=== PATIENT | male | born 1960 | race Caucasian/White ===

== ENCOUNTER 2023-07-30 14:27 | Inpatient (IN) | payer BC, SELFPAY ==
[2023-07-30 12:06] VITALS: BP 120/70
[2023-07-30 12:18] VITALS: BMI 29.0
--- NOTE | 2023-07-30 12:52 | ED.GENMED ---
History of Present Illness
<CORINA Doherty - Last Filed: 07/30/23 13:52>
General
Chief Complaint: Musculo-Skeletal Complaint
Source: patient
Exam Limitations: none
Time Seen by Provider: 07/30/23 12:16
Nursing documentation reviewed up to this point in time: agreed with
Travel History
Have you had any contact with someone who has COVID-19?: No
Do you have any symptoms of coronavirus? Fever > 100 degrees, chills, cough, shortness of breath, sore throat, loss of taste or smell, muscle aches, or headache?: No
History of Present Illness
History of Present Illness:
Patient is a 62-year-old male with past medical history of bone marrow transplant that presents to the ER complaining of right knee pain and swelling since Tuesday. He believes he may have hit his right knee on something Tuesday but swelling pain
and redness started Tuesday. He has had a lot of discomfort in the knee and went to urgent care was sent to the ER for possible septic knee. He denies any fever chills nausea vomiting. He had negative x-rays at urgent care
Past History
<CORINA Doherty - Last Filed: 07/30/23 13:52>
Past History
ED Past Medical History: Hypercholesterolemia and Other (Patient has a history of ALL)
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
Social History
Tobacco: Former smoker
Alcohol: Occasional (8 )
Drug: None (I )
Personal:
Living: with family
Employment: Employed
Family History
Family History: Hypertension; Negative Early CAD
Review of Systems
<CORINA Doherty - Last Filed: 07/30/23 13:52>
Review of Systems
Allergies reviewed?: Yes
All Other Systems: ROS reviewed and negative except as documented in HPI and ROS
Constitutional: Reports no symptoms; Denies fever, fatigue or chills
Respiratory: Reports no symptoms
Cardiac: Reports no symptoms
Musculoskeletal: Reports other (swelling/redness /pain to right knee )
Skin: Reports other (redness to right knee /anterior lower leg )
Neurological: Reports no symptoms
Psychiatric: Reports no symptoms
Phy Exam
<CORINA Doherty - Last Filed: 07/30/23 13:52>
General Physical Exam
General Presentation: no apparent distress
General age: appears stated age
General Skin: warm and dry
General Habitus: normal
General Mental: alert
General Hydration: appears well hydrated
Neurological Exam
Neurological Exam: alert and oriented x3
Musculoskeletal Exam
Musculoskeletal Exam: other (rle with strong pulses + erythema/warmth to right anterior knee, lower leg + obvious swelling over bursa pt able to flex/extend knee with discomfort )
Skin Exam
Skin Exam: normal color and warm/dry
Course
<CORINA Doherty - Last Filed: 07/30/23 13:52>
Orders/Labs/Results
Orders:
Orders
07/30/23 12:34
IV Insert/Care/Rem.- Treatment PRN
07/30/23 12:41
Complete Blood Count/With Diff Urgent
Comprehensive Metabolic Panel Urgent
Erythrocyte Sed Rate Urgent
Comment: ADD ON
Lactic Acid Q4H
Comment: CANCEL 2nd LACTIC ACID IF 1st LACTIC ACID IS LESS THAN 2
Blood Culture Q30M
TAMI Source: Blood/Venous
Specimen Description:
Blood Culture Q30M
TAMI Source: Blood/Venous
Specimen Description:
07/30/23 13:13
Add On- LAB Urgent
Tests Added?: sed rate/cbc
07/30/23 13:38
Vancomycin 1 Gram/200 ml [Vancocin] 1 gram in 200 ml IV NOW
Abnormal Lab Results
07/30/23
12:41
WBC 14.1 H 10^3/uL
(4.8-10.8)
RBC 4.51 L 10^6/uL
(4.70-6.10)
MPV 10.6 H fL
(7.4-10.4)
Absolute Neuts (auto) 10.7 H 10^3/uL
(1.4-6.5)
Absolute Monos (auto) 1.8 H 10^3/uL
(0.1-0.6)
Neutrophils % 76.2 H %
(42.2-75.2)
Lymphocytes % 10.6 L %
(20.5-51.1)
Monocytes % 12.6 H %
(1.7-9.3)
BUN 36 H mg/dl
(9-20)
Creatinine 2.4 H mg/dL
(0.7-1.3)
07/30/23 12:41
07/30/23 12:41
Vital Signs
Initial and Last Documented VS:
Initial Vital Signs
Temp Pulse Resp BP Pulse Ox
97.7 F 109 16 120/70 98
07/30/23 12:06 07/30/23 12:06 07/30/23 12:06 07/30/23 12:06 07/30/23 12:06
Last Documented Vital Signs
Temp Pulse Resp BP Pulse Ox
97.7 F 109 16 120/70 98
07/30/23 12:06 07/30/23 12:06 07/30/23 12:06 07/30/23 12:06 07/30/23 12:06
Truck Loader consulted with Physician
Truck Loader consulted with physician?: Yes
Name of Physician Consulted: rafael
<Nabil White, DO - Last Filed: 07/30/23 13:34>
Orders/Labs/Results
Orders:
Orders
07/30/23 12:34
IV Insert/Care/Rem.- Treatment PRN
07/30/23 12:41
Complete Blood Count/With Diff Urgent
Comprehensive Metabolic Panel Urgent
Erythrocyte Sed Rate Urgent
Comment: ADD ON
Lactic Acid Q4H
Comment: CANCEL 2nd LACTIC ACID IF 1st LACTIC ACID IS LESS THAN 2
Blood Culture Q30M
TAMI Source: Blood/Venous
Specimen Description:
Blood Culture Q30M
TAMI Source: Blood/Venous
Specimen Description:
07/30/23 13:13
Add On- LAB Urgent
Tests Added?: sed rate/cbc
07/30/23 13:38
Vancomycin 1 Gram/200 ml [Vancocin] 1 gram in 200 ml IV NOW
Abnormal Lab Results
07/30/23
12:41
WBC 14.1 H 10^3/uL
(4.8-10.8)
RBC 4.51 L 10^6/uL
(4.70-6.10)
MPV 10.6 H fL
(7.4-10.4)
Absolute Neuts (auto) 10.7 H 10^3/uL
(1.4-6.5)
Absolute Monos (auto) 1.8 H 10^3/uL
(0.1-0.6)
Neutrophils % 76.2 H %
(42.2-75.2)
Lymphocytes % 10.6 L %
(20.5-51.1)
Monocytes % 12.6 H %
(1.7-9.3)
BUN 36 H mg/dl
(9-20)
Creatinine 2.4 H mg/dL
(0.7-1.3)
07/30/23 12:41
07/30/23 12:41
Vital Signs
Initial and Last Documented VS:
Initial Vital Signs
Temp Pulse Resp BP Pulse Ox
97.7 F 109 16 120/70 98
07/30/23 12:06 07/30/23 12:06 07/30/23 12:06 07/30/23 12:06 07/30/23 12:06
Last Documented Vital Signs
Temp Pulse Resp BP Pulse Ox
97.7 F 109 16 120/70 98
07/30/23 12:06 07/30/23 12:06 07/30/23 12:06 07/30/23 12:06 07/30/23 12:06
<CORINA Doherty - Last Filed: 07/30/23 13:52>
MDM/Problems Addressed
Differential Diagnosis Includes:
not limited to:
MDM/Problems Addressed:
Symptoms are consistent with infected bursa. Patient nontoxic-appearing afebrile white count minimally elevated. Patient does have surrounding erythema to proximal knee distal thigh and lower leg. Patient eval by Dr White will adm /iv antibx.
Chronic conditions affecting care:
hx of bone marrow transplant
<CORINA Doherty - Last Filed: 07/30/23 13:52>
*Pulse Oximetry
Patient hypoxic: no
*Critical Care Note
Total Time (30-74mins, 75-104mins- exclusive of procedures): Not Applicable
ED Attending Note
<CORINA Doherty - Last Filed: 07/30/23 13:52>
-
Portions of this chart may have been created with voice recognition software.� Occasional wrong word or��sound alike� substitutions may have occurred due to the inherent limitations of voice recognition software.
<Nabil White DO - Last Filed: 07/30/23 13:34>
ED Attending Note
Patient seen and examined by attending physician: Yes
I performed the substantive portion of visit, reviewed & personally made and approve the management plan that is documented in note by myself or SEAN.: Yes
ED Attending Note:
62-year-old male with history of bone marrow transplant who presents with red and swollen right lower extremity. Patient states he thinks he bumped his knee and did not think much of it. Today he noticed a swollen red it was. Sent from urgent
care to rule out septic arthritis. Patient is able to bend the knee but does have pain due to the swelling and redness. No fevers. Exam: Clearly tender prepatellar bursa on the right with surrounding redness that extends across anterior knee
proximal to the thigh and distal almost to the ankle. Significant warmth throughout. Swelling throughout the right lower extremity. Does not have a significant joint effusion suspected but is somewhat difficult as his skin is swollen. Assessment
and plan: More fever infected bursa with surrounding cellulitis and I do septic joint. IV antibiotics and admit
Discharge Plan
Departure
Patient Disposition: Admit
Date of Disposition: 07/30/23
Time of Disposition: 13:51
Admit to: Med/Surg
Admit to doctor: kirt
Presentation/result/management discussed w/ accepting MD/DO: Hospitalist
Patient with high blood pressure during this ER visit?: No
Condition: Fair
Covid-19: Not Applicable
Discharge Problem:
infected right knee bursa, cellulitis right leg
Prescriptions:
No Action
atorvastatin 10 MG tablet
10 mg PO QPM
cephalexin 500 MG capsule
500 mg PO QID Qty: 20 0RF
Referrals:
Mary Daniels MD [Family Provider] -
Interventions
Interventions:
*Risk Screen - Suicide Last Done: 07/30/23 12:18
*General Assessment Last Done: 07/30/23 12:18
*Neglect/Abuse Screening Last Done: 07/30/23 12:18
ED- Fall Risk Assessment Last Done: 07/30/23 12:18
*ED COVID-19 Vaccine History Last Done: 07/30/23 12:06
ED-Musculoskeletal Assessment Last Done: 07/30/23 12:18
[2023-07-30 12:59] LABS: % Basophils 0.2 % (0-2); % Eosinophils 0.1 % (0-6); % Immature Granulocytes 0.3 % (0-0.5); % Lymphocytes 10.6 % (20.5-51.1); % Monocytes 12.6 % (1.7-9.3); % Neutrophils 76.2 % (42.2-75.2); Absolute Lymphocytes 1.5 10^3/uL (1.2-3.4); Absolute Monocytes 1.8 10^3/uL (0.1-0.6); Absolute Neutrophils 10.7 10^3/uL (1.4-6.5); Hemoglobin 13.9 g/dL (13.0-18.0); Mean Corp Hgb Conc. 33.9 g/dL (33.0-37.0); Mean Corpuscular Hgb 30.8 pg (27.0-31.0); Mean Corpuscular Volume 90.9 fL (80.0-94.0); Mean Platelet Volume 10.6 fL (7.4-10.4); Nucleated Red Blood Cells % 0 % (-); Platelet Count 197 10^3/uL (130-400); Red Blood Cell Count 4.51 10^6/uL (4.70-6.10); Red Cell Dist. Width 13.4 % (11.5-14.5); White Blood Cell Count 14.1 10^3/uL (4.8-10.8)
[2023-07-30 13:06] LABS: Lactic Acid 0.9 mmol/L (0.7-2.0)
[2023-07-30 13:07] LABS: ALT (SGPT) 42 U/L (0-50); AST (SGOT) 45 U/L (17-59); Albumin 4.3 g/dl (3.5-5.0); Alkaline Phosphatase 60 U/L (38-126); Blood Urea Nitrogen 36 mg/dl (9-20); Calcium 9.7 mg/dl (8.4-10.2); Carbon Dioxide 25 mmol/L (22-30); Chloride 103 mmol/L (98-107); Estimated Creatinine Clearance 33 ml/min; Glucose 95 mg/dl (70-99); Potassium 4.6 mmol/L (3.5-5.1); Sodium 135 mmol/L (135-145); Total Protein 7.4 g/dl (6.3-8.2); eGFR 29.95
[2023-07-30] MEDS: VANCOCIN 200 IV ×2 (13:48→15:58)
--- NOTE | 2023-07-30 13:50 | HPS.HSE ---
Addendum entered and electronically signed by Daenne Roman MD 07/30/23 14:46:
I saw and examined the patient.
The CROP ADJUSTER's note was reviewed and I agree with the note.
Comment:
Mr. Deuce Navarrete is a 62 yo man with hx ALL s/p bone marrow transplant, HLD presents to the ER with right knee pain and swelling since Tuesday. Seen at urgent care with negative x-rays.
Triage VS: T 97.7, P 109, RR 16, BP 120/70, SpO2 98%
LABS: WBC 14.1, Hg 13.9, PLT 197, Na 135, K+ 4.6, CO2 25, BUN 36, Cr 2.4, lactate 0.9, liver enzymes WNL
On exam patient is with erythema right knee extending down to ankle. He has minimal flexion right knee 2/2 pain. He is not tender lateral aspects but tender anteriorly along bursa.
MAR: IV Vancomycin
Patient will be admitted to medicine with Ortho consulting; concern for septic bursitis. IV Vanc given in ER, add on IV Cefazolin. Unknown baseline creatinine although patient states it is chronically elevated. Will give IVF overnight and
monitor. Monitor WBC, fever curve. continue home medications.
Original Note:
Family Physician
-
Family Physician: Mary Daniels
Chief Complaint
-
right LE redness and swelling
History of Present Illness
62-year-old male with past medical history of bone marrow transplant that presents to the ER complaining of right knee pain and swelling since Tuesday.� He believes he may have hit his right knee on table on Tuesday but swelling pain and redness
started Tuesday.�stated progressively worsening swelling,redness and pain. He has had a lot of discomfort in the knee and went to urgent care was sent to the ER for possible septic knee.� He denies any fever chills nausea vomiting.� denied ROSALES,
dizzy or syncopal episode. denied chest pain, sob. denied abdominal pain, n,v,d. denied dysuria or hematuria.
Patient received Vanco in the ER. Admitting for further management
Medical History
Past Medical History
Past Medical History: Reports Other
Additional Past Medical History:
Hello
Hyperlipidemia
Bone marrow transplant
Past Surgical History: Reports None
Social History
Tobacco: Former Smoker
Alcohol: Former
Drug: None
Living: With Family
Family History
Family History: Not pertinent
Allergies / Home Medications
Allergies reflects when Allergies were last updated in [facility].
Home Medications with original date entered in [facility]
Allergy/Medication List:
Allergies
Allergy/AdvReac Type Severity Reaction Status Date / Time
No Known Allergies Allergy Verified 07/30/23 12:08
Home Medications
amlodipine 5 mg tablet (Norvasc) 5 mg PO DAILY 07/30/23
aspirin 325 mg tablet 325 mg PO BIDPRN PRN MILD PAIN 07/30/23
fenofibrate 160 mg tablet 160 mg PO DAILY 07/30/23
rosuvastatin 10 mg tablet (Crestor) 10 mg PO QPM 07/30/23
Review of Systems
-
Constitutional: Reports No Symptoms
EENT: Reports No Symptoms
Respiratory: Reports No Symptoms
Cardiac: Reports No Symptoms
Abdomen/GI: Reports No Symptoms
: Reports No Symptoms
Musculoskeletal: Reports Other (right knee pain, redness, swelling)
Skin: Reports No Symptoms
Neurological: Reports No Symptoms
Endocrine: Reports No Symptoms
Hematologic/Lymphatic: Reports No Symptoms
Psych: Reports No Symptoms
Physical Exam
Vital Signs
Vital Signs
Temp Pulse Resp BP Pulse Ox
97.7 F 109 16 120/70 98
07/30/23 12:06 07/30/23 12:06 07/30/23 12:06 07/30/23 12:06 07/30/23 12:06
Physical Exam
General: Well Developed, Well Nourished and No Apparent Distress
HEENT: NormoCephalic, Moist mucous membranes and Atraumatic
Respiratory: Clear
Cardiac: S1/S2 and Regular Rhythm; No Murmur or Rub
GI: Soft, Non Tender, Non Distended and Normal Bowel Sounds; No Organomegaly
Rectal: Deferred by Provider
Musculoskeletal: No Clubbing, No Cyanosis and Other (right knee pain, redness swelling)
Skin: No Rash
Neuro: AO x 3 and Nonfocal/grossly intact
Psych: Calm
Laboratory Results
-
07/30/23 12:41
07/30/23 12:41
Laboratory Results
Lactic Acid Cancelled 07/30/23 16:45
Total Bilirubin 1.0 mg/dl (0.2-1.3) 07/30/23 12:41
AST 45 U/L (17-59) 07/30/23 12:41
ALT 42 U/L (0-50) 07/30/23 12:41
Alkaline Phosphatase 60 U/L (38-126) 07/30/23 12:41
Data Reviewed
-
Lab Data: Labs Reviewed by me
Impression/Plan
-
# Redness to right leg and knee likely bursa with cellulitis
-WBCs 14.1
-IV vancomycin
-iv cefazolin
-Tylenol as needed for fever
-Blood culture sent from ER
-orthopedics consulted
# Acute kidney injury likely on 6 chronic kidney disease stage IIIb likely dehydration
-Creatinine 2.4
-normal saline continued
-monitor BMP in am
# History of ALL
-Status post bone marrow transplant
# Essential hypertension
-Blood pressure stable in ER
-Norvasc continued
# Hyperlipidemia
-Fenofibrate and Crestor continued
# DVT prophylaxis
-Heparin subcu
# CODE STATUS
-Full code
[2023-07-30 14:25] LABS: Erythrocyte Sed Rate 23 mm/hour (0-20)
--- NOTE | 2023-07-30 15:03 | CON.ORTHO ---
Consultation - Orthopedics
History
Deuce presents with progressive knee pain and swelling since Tuesday. Now difficult to walk. Went to urgent care this am, x-ray negative and referred to ED. Denies fevers or chills. Does have PMH of gout, and ALL with bone marrow transplant.
Allergies / Home Medications
Allergy/AdvReac Type Severity Reaction Status Date / Time
No Known Allergies Allergy Verified 07/30/23 12:08
Medication Instructions Recorded
amlodipine 5 mg tablet (Norvasc) 5 mg PO DAILY 07/30/23
aspirin 325 mg tablet 325 mg PO BIDPRN PRN MILD PAIN 07/30/23
fenofibrate 160 mg tablet 160 mg PO DAILY 07/30/23
rosuvastatin 10 mg tablet (Crestor) 10 mg PO QPM 07/30/23
Vital Signs / Lab Results
Temp Pulse Resp BP Pulse Ox
97.7 F 109 16 120/70 98
07/30/23 12:06 07/30/23 12:06 07/30/23 12:06 07/30/23 12:06 07/30/23 12:06
07/30/23 12:41
07/30/23 12:41
Right knee has erythema anteriorly That extends down the anterior leg, very tender to palpation. 1+ joint effusion. Painful ROM. Ambulates with antalgic gait.
Assessment / Plan
Right knee effusion with cellulitis.
Using sterile technique, the knee was aspirated of 7ml cloudy synovial fluid.
Send fluid for cell count, crystals, cultures.
Gout is likely, but need to evaluate for possible infection.
Admit to hospitalist for IV abx.
Will follow.
--- NOTE | 2023-07-30 15:31 | PHA.VAN.IN ---
Assessment
- Assessment
Renal Function: Appears elevated from baseline
- Previous Dosing Experience
Previous Regimen: 1000MG Q48H
Date of Regimen: 04/2010
Patient's SCR is: Decreased compared to previous dosing experience (2.4(NOW) VS 3.4 (04/2010))
Patient's weight is: Elevated compared to previous dosing experience (90.3KG (NOW) VS 66.2KG (04/2010))
Plan
- Plan
Initial / Loading Dose: 2000MG
Maintenance Regimen: PRN BY LEVEL
Monitoring: RANDOM LEVEL 07/31 IN AM
Pharmacokinetics Vancomycin I
- -
Patient Age: 62
Patient Sex: Male
Vancomycin Day #: 1
Indication: Skin And Soft Tissue
Requesting Provider: EARNEST REYES
Pertinent Antimicrobial Allergies:
NKDA
Height / Weight:
Height 5 ft 9.5 in
Actual Weight 90.3 kg
IBW in k.9
- Vital Signs / Lab Results
Temp Pulse Resp BP Pulse Ox
97.7 F 109 16 120/70 98
07/30/23 12:06 07/30/23 12:06 07/30/23 12:06 07/30/23 12:06 07/30/23 12:06
Lab Results - Hematology
07/30/23
12:41
WBC 14.1 H
Lab Results - Chemistry
07/30/23
12:41
BUN 36 H
Creatinine 2.4 H
Estimated Creat Clear 33
Albumin 4.3
07/30/23 07/30/23
12:41 16:45
Lactic Acid 0.9 Cancelled
[2023-07-30 15:57] VITALS: BP 143/82; BMI 28.5
[2023-07-30] MEDS: ANCEF 10 IV (15:58)
[2023-07-30] MEDS: NSS 1000 IV (15:58)
[2023-07-30 16:06] LABS: Body Fluid WBC 12920 /CUMM
[2023-07-30 16:07] LABS: Body Fluid Mononuclear 13.2 %; Body Fluid Polymorphonuclear 86.8 %
[2023-07-30 16:17] LABS: Body Fluid Second Tech DW
[2023-07-30] MEDS: CRESTOR 10 MG PO (17:17)
[2023-07-30] MEDS: HEPARIN 5000 UNITS SC (19:45)
[2023-07-30] MEDS: TYLENOL 650 MG PO (19:45)
[2023-07-30] MEDS: DELTASONE 40 MG PO (19:45)
[2023-07-30 23:50] VITALS: BP 98/63
[2023-07-31] MEDS: NSS 1000 IV (03:59)
[2023-07-31] MEDS: ANCEF 10 IV ×2 (04:06→15:39)
[2023-07-31 07:33] LABS: Hematocrit 41.3 % (39.0-52.0); Hemoglobin 13.8 g/dL (13.0-18.0); Mean Corp Hgb Conc. 33.4 g/dL (33.0-37.0); Mean Corpuscular Hgb 30.1 pg (27.0-31.0); Mean Corpuscular Volume 90.2 fL (80.0-94.0); Mean Platelet Volume 10.4 fL (7.4-10.4); Platelet Count 223 10^3/uL (130-400); Red Blood Cell Count 4.58 10^6/uL (4.70-6.10); Red Cell Dist. Width 13.2 % (11.5-14.5); White Blood Cell Count 11.5 10^3/uL (4.8-10.8)
[2023-07-31 07:47] LABS: Vancomycin Random 13.8 ug/ml
[2023-07-31 07:51] VITALS: BP 121/81
--- NOTE | 2023-07-31 07:55 | W.PN.UPDATE ---
Update Note
Progress Note Update
62M with concern for right knee cellulitis/septic arthropathy s/p aspiration
[place] [address], positive for monosodium urate crystals/gouty arthropathy. Infection low likelihood with cell count.
-recommend specific treatment for gouty arthropathy per primary vs rheumatology if needed
-Orthopedic surgery will sign off at this time; recommend outpatient f/u with PCP or rheumatology.
[2023-07-31 07:57] LABS: Blood Urea Nitrogen 37 mg/dl (9-20); Calcium 9.5 mg/dl (8.4-10.2); Carbon Dioxide 23 mmol/L (22-30); Chloride 107 mmol/L (98-107); Estimated Creatinine Clearance 39 ml/min; Glucose 123 mg/dl (70-99); Potassium 4.2 mmol/L (3.5-5.1); Sodium 138 mmol/L (135-145); eGFR 37.27
[2023-07-31] MEDS: HEPARIN 5000 UNITS SC ×2 (08:26→20:04)
[2023-07-31] MEDS: TRICOR 145 MG PO (08:26)
--- NOTE | 2023-07-31 08:36 | PHA.VAN.FU ---
Vancomycin Assessment / Plan
- Assessment
Renal Function: SCR Decreasing (2.4-->2.0)
WBC's are: Trending Down
In the past 24 hrs, patient has been: Afebrile
Concomitant Antimicrobials: ANCEF
- Assessment - Therapeutic Drug Monitoring
Random Level: 13.8
- Dosing Plan
Dosing by Level: Re-dose today (1250MG)
- Monitoring Plan
Random Level: 08/01 IN AM
- Follow Up
Pharmacy will continue to follow.
Vancomycin Follow UP
- -
Patient Age: 62
Patient Sex: Male
Vancomycin Day #: 2
Indication: Skin And Soft Tissue
Requesting Provider: EARNEST REYES
Pertinent Antimicrobial Allergies:
NKDA
Height / Weight:
Height 5 ft 9 in
Actual Weight 87.6 kg
IBW in k.9
- Vital Signs / Lab Results
Temp Pulse Resp BP Pulse Ox
97.7 F 97 18 121/81 95
07/31/23 07:51 07/31/23 07:51 07/31/23 07:51 07/31/23 07:51 07/31/23 07:51
Lab Results - Hematology
07/30/23 07/31/23
12:41 06:59
WBC 14.1 H 11.5 H
Lab Results - Chemistry
07/30/23 07/31/23
12:41 06:59
BUN 36 H 37 H
Creatinine 2.4 H 2.0 H
Estimated Creat Clear 33 39
Albumin 4.3
07/30/23 07/30/23
12:41 16:45
Lactic Acid 0.9 Cancelled
Microbiology Results
07/30/23 15:05 Gram Stain - Preliminary
Joint Fluid
Therapeutic Drug Monitoring
Random Vancomycin 13.8 ug/ml 07/31/23 06:59
[2023-07-31] MEDS: NORVASC PO (09:23)
[2023-07-31] MEDS: VANCOCIN 275 MG IV (09:23)
--- NOTE | 2023-07-31 10:37 | W.PN.HOSP.TC ---
Today's Communication/Plan
-
IV Cefazolin, stop vanc
oral prednisone
Assessment / Plan
Assessment / Plan
Mr. Deuce Navarrete is a 62 yo man with hx ALL s/p bone marrow transplant, HLD presents to the ER with right knee pain and swelling since Tuesday.� Seen at urgent care with negative x-rays. Admitted to medicine with ortho consulting s/p aspiration
showing monosodium urate crystals.
Gout
possible superimposed cellulitis
-s/p ortho guided tap on 07/30 with fluid showing monosodium urate crystals; gram stain without growth
-continue prednisone 40mg PO QD (given CKD)
-given erythema extended to mckeon; will continue IV antibiotics IV Cefazolin; stop Vancomycin
-F/U final culture
-PT/OT
-pain control
HLD
-POLISHER AND SANDER fenofibrate, crestor
HTN
-POLISHER AND SANDER amlodipine
acute on chronic kidney disease stage III
-creatinine now likely at baseline
-patient eating and drinking well, stop further fluids
Hx ALL s/p bone marrow transplant
DVT PPx
FULL CODE �
Anticipated Discharge: 24 - 48 hours
Subjective/Interval History
-
Date of Service: July 31, 2023
right mckeon less erythematous; right knee with persistent swelling
Objective Data
-
Labs:
Laboratory Results
07/31/23
06:59
WBC 11.5 H
Hgb 13.8
Hct 41.3
Plt Count 223
Sodium 138
Potassium 4.2
Chloride 107
Carbon Dioxide 23
BUN 37 H
Creatinine 2.0 H
Glucose 123 H
Calcium 9.5
Vital Signs:
Vital Signs
Temp Pulse Resp BP Pulse Ox
97.7 F 97 18 121/81 95
07/31/23 07:51 07/31/23 07:51 07/31/23 07:51 07/31/23 07:51 07/31/23 07:51
I&O
07/30/23 07/31/23 08/01/23
06:59 06:59 06:59
Intake Total 1440 / 1440
Output Total 1200 / 1200
Balance 240 / 240
Review of Systems
-
History Source: Patient
All other systems: Reviewed and negative
Physical Exam
-
General: No Apparent Distress
HEENT: PERRLA
Respiratory: Clear to Auscultation; Negative Wheezes
Cardiac: Regular Rhythm and S1/S2
GI: Soft and Nontender
Musculoskeletal: Other (right knee with persistent swelling; erythema along mckeon improved )
Skin: Warm and Dry; Negative Rash
Neuro: AO x 3
Psych: Calm
Data Reviewed
-
Diagnostic Radiology: Report Reviewed by me
Labs: Labs Reviewed by me
[2023-07-31] MEDS: DELTASONE 40 MG PO (11:26)
--- NOTE | 2023-07-31 15:01 | CM ---
Alert awake oriented patient who lives alone in a 2 story home with 2 step to enter and 13 steps to bed and bathroom. He is independent in driving and in all activities of daily living.He was offered VN he declined need.He uses a cane.
[facility] hx / No SNF history
Pharmacy [facility]
PCP DR DIAZ
PLAN Home Declined VN
[2023-07-31 15:32] VITALS: BP 116/79
[2023-07-31] MEDS: CRESTOR 10 MG PO (17:40)
[2023-07-31 23:20] VITALS: BP 96/64
[2023-08-01] MEDS: ANCEF 10 IV (03:34)
[2023-08-01 07:05] VITALS: BP 128/82
--- NOTE | 2023-08-01 08:05 | W.PN.HOSP.TC ---
Today's Communication/Plan
-
Discharge today
Assessment / Plan
Assessment / Plan
Physical Exam
General: No Apparent Distress
HEENT: Normocephalic
Respiratory: Clear to Auscultation
Cardiac: Regular Rhythm and S1/S2
GI: Soft and Nontender. Positive bowel sounds.
Musculoskeletal: Other (right knee with improved swelling; erythema along mckeon improved )
Skin: Warm and Dry
Neuro: AAO x 3
Psych: Calm

Assessment/Plan
Mr. Deuce Navarrete is a 62 yo man with hx ALL s/p bone marrow transplant, HLD presented to the ER with right knee pain and swelling for the prior 3 to 4 days.� Seen at urgent care with negative x-rays. Admitted to medicine with ortho consulting s/p
aspiration showing monosodium urate crystals.
Gout
Possible superimposed cellulitis
-s/p ortho guided tap on 07/30 with fluid showing monosodium urate crystals; gram stain without growth
-continue prednisone 40mg PO QD (given CKD) for another 3 days (last day is August 04, 2023) followed by prednisone taper 30 mg x3 days, followed by 20 mg x3 days, followed by 10 mg x 3 days
-given erythema extended to mckeon; will continue PO antibiotics with Cephalexin 500 mg QID x 4 more days. Status post IV antibiotics with IV Cefazolin; Status post Vancomycin
-F/U final culture
-PT/OT
-pain control
Hyperlipidemia
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
Hypertension
-SENIOR LINUX SYSTEMS ADMINISTRATOR amlodipine
Acute on chronic kidney disease stage III
-creatinine now likely at baseline
-patient eating and drinking well, stop further fluids
Hx ALL s/p bone marrow transplant
DVT PPx
FULL CODE �
More than 30 minutes spent in discharge including
Final examination of the patient
Summarizing hospital stay
Instructions for continuing care to all relevant caregivers
Preparation of discharge records, prescriptions, and referral forms
Total time spent (in minutes): 39
Anticipated Discharge: Today
Subjective/Interval History
-
Date of Service: August 01, 2023
Patient was seen and examined. He reported that he is feeling better, and that the pain, swelling and redness in his right knee is better.
Objective Data
-
Labs:
Laboratory Results
08/01/23
07:22
WBC Pending
Hgb Pending
Hct Pending
Plt Count Pending
Sodium Pending
Potassium Pending
Chloride Pending
Carbon Dioxide Pending
BUN Pending
Creatinine Pending
Glucose Pending
Calcium Pending
Vital Signs:
Vital Signs
Temp Pulse Resp BP Pulse Ox
97.4 F 100 18 96/64 96
07/31/23 23:20 07/31/23 23:20 07/31/23 23:20 07/31/23 23:20 07/31/23 23:20
I&O
07/31/23 08/01/23 08/02/23
06:59 06:59 06:59
Intake Total 1440 / 1440 960 / 960
Output Total 1200 / 1200 1400 / 1400
Balance 240 / 240 -440 / -440
[2023-08-01 08:10] LABS: Hemoglobin 13.3 g/dL (13.0-18.0); Mean Corp Hgb Conc. 33.3 g/dL (33.0-37.0); Mean Corpuscular Hgb 30.4 pg (27.0-31.0); Mean Corpuscular Volume 91.5 fL (80.0-94.0); Mean Platelet Volume 10.8 fL (7.4-10.4); Platelet Count 249 10^3/uL (130-400); Red Blood Cell Count 4.37 10^6/uL (4.70-6.10); Red Cell Dist. Width 13.3 % (11.5-14.5); White Blood Cell Count 19.2 10^3/uL (4.8-10.8)
[2023-08-01] MEDS: DELTASONE 40 MG PO (08:18)
[2023-08-01] MEDS: TRICOR 145 MG PO (08:18)
[2023-08-01] MEDS: HEPARIN 5000 UNITS SC (08:18)
[2023-08-01] MEDS: NORVASC 5 MG PO (08:18)
[2023-08-01 08:35] LABS: Blood Urea Nitrogen 38 mg/dl (9-20); Calcium 9.4 mg/dl (8.4-10.2); Carbon Dioxide 26 mmol/L (22-30); Chloride 105 mmol/L (98-107); Estimated Creatinine Clearance 43 ml/min; Glucose 89 mg/dl (70-99); Potassium 4.3 mmol/L (3.5-5.1); Sodium 138 mmol/L (135-145)
--- NOTE | 2023-08-01 13:33 | W.DS.TRANS ---
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
-
Discharge Instructions:
Discharge Diagnosis/Procedures Right Knee Pain Secondary to Gout
Gout
Possible superimposed cellulitis
Hyperlipidemia
Hypertension
Acute on chronic kidney disease stage III
History of Acute Lymphocytic Leukemia status
post bone marrow transplant
Diet As tolerated
Activity As tolerated
Driving Restrictions Not until seen by your Dr
Instructions:
Stand-Alone Forms:
Changes to Home Medications: Yes
Discharge Medications:
DC Medications w/original date entered in [facility]
amlodipine 5 mg tablet (Norvasc) 5 mg PO DAILY Blood Pressure 07/30/23
aspirin 325 mg tablet 325 mg PO BIDPRN PRN MILD PAIN 07/30/23
fenofibrate 160 mg tablet 160 mg PO DAILY HIGH TRIGLYCERIDES 07/30/23
rosuvastatin 10 mg tablet (Crestor) 10 mg PO QPM High Cholesterol 07/30/23
cephalexin 500 mg capsule 500 mg PO QID #16 caps 08/01/23
prednisone 10 mg tablet See Rx Instructions .Route .COMPLEX #30 tabs 08/01/23
Home Medication Changes
Prednisone Taper and Cephalexin are new medications.
Pending Results: Yes
Additional Pending Results:
Final results of knee fluid cultures and blood cultures from hospitalization
Total time spent discharging patient (in min): 39
--- NOTE | 2023-08-01 14:40 | PTCARENOTE ---
Discharge papers given to the patient. Explained pt regarding recommendation to not drive until seen by PCP. pt insisted on driving states 'I drove when my knee was worse, im feeling better now.' Pt states ' I don't have anyone that lives close
by.' pt is DC.
--- NOTE | 2023-08-04 08:02 | W.DCSUMMARY ---
Discharge Summary
Discharge Data
Date of Admission: 07/30/23
Date of Discharge: 08/01/23
Total time spent discharging patient (in min): 39
-
Pending Results: Yes
Additional Pending Results:
Final results of knee fluid cultures and blood cultures from hospitalization
Hospital Course
62 y/o male with past medical history of gout, ALL status post bone marrow transplant and hyperlipidemia presented to the emergency room with right knee pain and swelling. Patient had erythema of his right knee extending down to his right ankle.
Orthopedics was consulted and Vancomycin was given in the emergency room; later the patient was continued on Cefazolin. Orthopedics impression was right knee effusion with cellulitis, and they aspirated the synovial fluid of the right knee. Synovial
fluid studies showed low cell count for infection at 12,920 white blood cells, positive for monosodium urate crystals/gouty arthropathy. Infection had low likelihood with cell count - orthopedics recommend specific treatment for gouty arthropathy
and patient was started on prednisone with close outpatient follow-up with rheumatology. Patient's right knee symptoms improved significantly. Patient was discharged on Prednisone and Antibiotics.
Discharge Plan
-
Patient Disposition: Home (Routine Discharge)
Discharge Diagnosis/Procedures: Right Knee Pain Secondary to Gout
Gout
Possible superimposed cellulitis
Hyperlipidemia
Hypertension
Acute on chronic kidney disease stage III
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
Condition: Good
Diet: As tolerated
Activity: As tolerated
Driving Restrictions: Not until seen by your Dr
Activity Restrictions/Additional Instructions:
If your knee pain, redness and swelling, either do not get better, or get worse, please return to the ER right away.
It is important to follow-up with your primary care physician as soon as possible this week to review your medications and recheck any labwork if needed.
Referrals:
Robbi Penn DO [Consulting Staff] - in one to two weeks
Mary Daniels MD [Family Provider] - in one to two days
Prescriptions:
New
prednisone 10 mg tablet
See Rx Instructions .ROUTE .COMPLEX Qty: 30 0RF
Rx Instructions:
40 mg x3 days (start on 08/02/23), then 30 mg x3 days, then 20 mg x3 days, then 10 mg x3 days
cephalexin 500 mg capsule
500 mg PO QID Qty: 16 0RF
Continued
amlodipine [Norvasc] 5 mg Tablet
5 mg PO DAILY
rosuvastatin [Crestor] 10 mg Tablet
10 mg PO QPM
fenofibrate 160 mg Tablet
160 mg PO DAILY
Held
aspirin 325 mg Tablet
325 mg PO BIDPRN PRN (Reason: MILD PAIN)
Hold Instructions: Resume on 08/17/23. Discuss this with your outpatient physicians before resuming this medication.
Discharge Orders:
Discharge Patient (As Directed); Ordered 08/01/23
Ordered By: Bernard Pereira
Discharge Date and Time
Discharge Date/Time: 08/01/23 14:50
== END 2023-08-01 14:50 | disposition home or self-care (01) | DRG 603 ==
LOC: 4 EAST ACU 14:27
PROVIDERS: Nurse Practitioner; Registered Nurse; ADMITTING PHYSICIAN Student in an Organized Health Care Education/Training Program; ATTENDING PHYSICIAN Hospitalist; CONSULT PHYSICIAN Specialist; EMERGENCY PHYSICIAN Emergency Medicine; FAMILY PHYSICIAN Internal Medicine
DX: L03.115 Cellulitis of right lower limb (principal); N17.9 Acute kidney failure, unspecified; M10.9 Gout, unspecified; I12.9 Hypertensive chronic kidney disease with stage 1 through stage 4 chronic kidney disease, or unspecified chronic kidney disease; N18.32 Chronic kidney disease, stage 3b; E78.00 Pure hypercholesterolemia, unspecified; E86.0 Dehydration; Z87.891 Personal history of nicotine dependence
CPT/HCPCS: 80048; 80053; 80202; 83605; 85025; 85027; 85652; 87015; 87040; 87070; 87205; 89051; 89060; 96365; 96366; 97162; 99284